=== PATIENT | male | born 1995 | race Caucasian/White ===

== ENCOUNTER 2021-11-11 09:59 | Emergency (ER) | payer MEDICAID, SELFPAY ==
--- NOTE | 2021-11-11 10:04 | ED_ITS ---
HPI - General Adult General Chief complaint: Dental/Oral Stated complaint: Dental pain Time Seen by Provider: 11/11/21 10:04 Source: patient Limitations: no limitations History of Present Illness HPI narrative: Patient presents the ER complaining of left lower dental pain. Patient has a planned follow-up with oral surgeon for dental extraction. Patient was started on oral antibiotics. Patient states continued to have pain is 7/10 minimal relief with Aleve at home patient also complaining of headache at this time. Patient denies fever chills chest pain shortness of breath. Patient takes no prescribed medication at this time. Symptoms mild to moderate. No other complaints Related Data Previous Rx's Medication Instructions Recorded tramadol 50 mg tablet 50 mg PO Q8H PRN #14 tab 11/11/21 Allergies Allergy/AdvReac Type Severity Reaction Status Date / Time No Known Allergies Allergy Verified 11/11/21 10:25 Review of Systems Constitutional: Constitutional: Denies chills, Denies fatigue, Denies fever(s) and Reports headache(s) ENT: Reports headache(s) and Reports other (Dental pain oral pain) Cardiovascular: Cardiovascular: Denies chest pain and Denies dyspnea Respiratory: Respiratory: Denies dyspnea Musculoskeletal: Musculoskeletal: Reports no additional musculoskeletal complaints Neurologic: Reports headache(s) Endocrine: Endocrine: Denies fatigue [facility] Social History Social History Advance Directives: No Advance Directives Information Provided: No Physical Exam ED Vital Signs: Vital Signs - 24 hr 11/11/21 10:26 Temperature 97.6 F Pulse Rate 61 Respiratory Rate 16 Blood Pressure 104/60 Pulse Oximetry 100 BMI result Body Mass Index 22.8 vital signs have been reviewed as normal and appeared to be correct. Blood pressure normal. Heart rate normal. Respiration rate normal. Temperature normal. Oxygen saturation normal. Appearance: Alert. Oriented X3. No acute distress. Head: Normal external exam. Normocephalic. Atraumatic. Eyes: PERRLA. EOMI. Conjunctiva and sclera normal. Eyelids normal. ENT: Uvula is midline oropharynx is clear mucosa membranes are moist. Left lower molar positive decay no obvious abscess noted. Neck: Soft full range of motion CVS: Heart regular rate and rhythm no murmurs and rubs Respiratory: Breath sounds are clear to auscultation bilaterally. No accessory muscle use noted. Back: Full range of motion noted. Skin: Skin warm and dry. Normal skin color. Normal skin turgor. No rashes/lesions/lacerations noted. Extremities: Patient moving all extremities purposely patient is ambulatory Neuro: Oriented X 3. No motor deficit. No sensory deficit. Reflexes normal. Course Course Course Narrative: Left-sided facial pain Dental fracture Dental caries Dental abscess 10:14 patient has follow-up planned with oral surgeon for dental extraction currently is on antibiotics will prescribe patient a old G0 check recommended to follow-up with dentist. Discharge Plan Discharge Clinical Impression: Dental caries Patient Disposition: Home, Self-Care Instructions: Toothache (ED) Additional Instructions: Medication as directed continue antibiotics Close follow-up with dentist as recommended Prescriptions: New tramadol 50 mg tablet 50 mg PO Q8H PRN (Reason: severe pain (scale score 7-10)) Qty: 14 0RF
[2021-11-11 10:26] VITALS: BP 104/60; PULSE 61; RESP 16; TEMP 36.4; O2SAT 100; BMI 22.8
== END 2021-11-11 10:38 | disposition home or self-care (01) ==
LOC: HO.ED 10:20
PROVIDERS: Emergency Provider Emergency Medicine
DX: K08.89 Other specified disorders of teeth and supporting structures (principal); K02.9 Dental caries, unspecified; R51.9 Headache, unspecified
CPT/HCPCS: 99283